=== PATIENT | male | born 1940 | race Caucasian/White ===

== ENCOUNTER 2018-01-03 07:07 | Outpatient (CLI) | payer MEDICARE, BC ==
[~2018-01-03] VITALS: Ht 175.3 cm; Wt 78.2 kg
--- NOTE | ~2018-01-03 | HEMODYNAMI ---
PATIENT:BRENDA CHAVARRIA MEDICAL RECORD: [id number] : 42 LOCATION:[facility] ADMISSION DATE: 01/03/18 Generatedon:01/03/20188:30 Patient name: BRENDA CHAVARRIA Patient #: [id number] SSN: : 1940 Date of study: 01/03/2018 Page: Of Hemodynamic Procedure Report Patient Data Patient Demographics Procedure consent was obtained First Name: BRENDA Gender: Male Last Name: DEON : 1940 [facility] Initial: R Age: 77 year(s) Patient #: [id number] Race: Unknown Additional ID: [id number] Contact details Address: [address] [place] [address] [facility] State: [place] City: [facility] Zip code: [address] Past Medical History Allergies Allergen Reaction Date Comments Reported Penicillins 01/03/2018 Admission Admission Data Admission Date: 01/03/2018 Admission Time: 7:07 Procedure Procedure Types Cath Procedure Diagnostic Procedure LHC LHC w/Coronaries Sedation Charges Moderate Sedation up to 15 minutes Procedure Description Procedure Date Procedure Date: 01/03/2018 Procedure Start Time: 8:15 Procedure End Time: 8:29 Procedure Staff Name Function Bishop Cohen MD Performing Physician Genet Thompson RT Monitor Epifanio Lang RN Nurse Todd Plummer RT Scrub Procedure Data Cath Procedure Fluoroscopy Diagnostic fluoroscopy Total fluoroscopy Time: 2.6 time: 2.6 min min Diagnostic fluoroscopy Total fluoroscopy dose: 658 dose: 658 mGy mGy Contrast Material Contrast Material Type Amount (ml) Isovue 300 81 Entry Location Entry Primary Successful Side Size Upsize Upsize Entry Closure [place] ccessful Closure Location (Fr) 1 (Fr) 2 (Fr) Remarks Device Remarks Radial Right 6 Fr Mechanical artery Short Compression Estimated blood loss: 5 ml Diagnostic catheters Device Type Used For End Catheter Placement DIAGNOSTIC Peter 110cm LV Angiography 5Fr catheter ([id number]) DIAGNOSTIC Peter 110cm Left Coronary 5Fr catheter ([id number]) Angiography Procedure Complications No complications Procedure Medications Medication Administration Route Dosage 0.9% NaCl I.V. 100 ml/hr Oxygen etCO2 Nasal cannula 2 l/min Heparin Flush Bag added to field 2 bags (1000units/500ml NS) Lidocaine 2% added to field 20 Radial Cocktail added to field 1 syringe (Verapomil 2mg/Nitro 400mcg/Heparin 1500units) Versed I.V. 1 mg Fentanyl I.V. 50 mcg Radial Cocktail I.A. 1 syringe (Verapomil 2mg/Nitro 400mcg/Heparin 1500units) Versed I.V. 1 mg Fentanyl I.V. 50 mcg Hemodynamics Rest Heart Rate: 63 (bpm) Pressure Samples Time Site Value (mmHg) Purpose Heart Use Rate(bpm) 8:17 LV 71/6,14 EDP 83 8:18 AO 122/68(87) Pullback 83 8:18 LV 115/-4,4 Pullback 83 Gradients Valve Time Site 1 Site 2 Mean SEP/DFP Peak To Heart Use (mmHg) (sec/min) Peak Rate (mmHg) (bpm) Aortic 8:18 LV AO 0 2 0 83 115/-4,4 122/68(87) Calculations Valve P-P Mean Valve Index Valve Source Name Gradient Area Flow (cm2) Aortic 0 0 0 0 Snapshots Pre Cath Intra NCS Post Cath Vital Signs Time Heart Resp SPO2 etCO2 NIBP (mmHg) Rhythm Pain Sedation Rate (ipm) (%) (mmHg) Status Level (bpm) 7:56:11 63 14 94 0 181/93(154) NSR 0 (11) 10(A) , No pain 8:00:58 66 19 95 31.4 169/98(138) NSR 0 (11) 10(A) , No pain 8:05:43 70 17 92 33.7 169/95(125) NSR 0 (11) 10(A) , No pain 8:10:30 61 17 94 8.2 166/78(137) NSR 0 (11) 9(A) , No pain 8:15:12 68 16 93 8.2 157/95(119) NSR 0 (11) 9(A) , No pain 8:19:53 76 17 93 24.7 131/79(96) NSR 0 (11) 9(A) , No pain 8:24:33 73 17 92 5.9 139/74(104) NSR 0 (11) 10(A) , No pain 8:29:16 70 7 94 42.7 149/78(135) NSR 0 (11) 10(A) , No pain Medications Time Medication Route Dose Verified Delivered Reason Notes Effectiveness by by 8:00:10 0.9% NaCl I.V. 100 Ji Ji Per ml/hr Ami Mueller physician RN RN 8:00:21 Oxygen etCO2 2 l/min Ji Ji Per Nasal Ami Mueller physician cannula RN RN 8:00:33 Heparin Flush added 2 bags Ji Ji used for Bag to Lorigan Ami procedure (1000units/500ml field RN RN NS) 8:00:44 Lidocaine 2% added 20ml Ji Ji for local to vial Lorigan Lorigan anesthetic field RN RN 8:00:55 Radial Cocktail added 1 Ji Ji used for (Verapomil to syringe Ami Mueller procedure 2mg/Nitro field RN RN 400mcg/Heparin 1500units) 8:03:28 Versed I.V. 1 mg Ji Ji for sedation Ami Mueller RN RN 8:03:38 Fentanyl I.V. 50 mcg Ji Ji for sedation Ami Mueller RN RN 8:16:57 Radial Cocktail I.A. 1 Ji Bishop for (Verapomil syringe Ami Cohen MD vasodilation 2mg/Nitro RN 400mcg/Heparin 1500units) 8:17:44 Versed I.V. 1 mg Ji Ji for sedation Ami Mueller RN RN 8:17:52 Fentanyl I.V. 50 mcg Ji Ji for sedation Ami Mueller RN erp analyst Log Time Note 7:36:55 Time tracking: Regular hours (M-F 7:00 - 5:00) 7:36:58 Plan of Care:Hemodynamics will remain stable., Cardiac rhythm will remain stable., Comfort level will be maintained., Respiratory function will remain adequate., Patient/ family verbilizes understanding of procedure., Procedure tolerated without complication., Recovers from procedure without complications.. 7:40:11 Genet Thompson RT(R) sent for patient. Start room use. 7:44:57 Patient received from Pre/Post Procedure Room to CCL 1 Alert and oriented. Tansferred to table in Supine position. 7:44:57 Warm blankets applied, and maile hugger turned on for patient comfort. 7:44:58 Correct patient and procedure confirmed by team. 7:44:59 Signed procedure consent form obtained from patient. 7:45:00 ECG and BP/O2 sat monitors applied to patient. 7:45:01 Full Disclosure recording started 7:54:37 Vital chart was started 7:54:41 Rhythm: sinus rhythm 7:54:49 H&P Date Dictated: 01/03/2018 New H&P dictated by physician.. 7:54:51 Pre-procedure instructions explained to patient. 7:54:51 Pre-op teaching completed and patient verbalized understanding. 7:54:52 Family in waiting room. 7:54:54 Patient NPO since Midnight. 7:54:59 Patient allergic to Penicillins 7:55:01 Is the patient allergic to Iodine/contrast media? No. 7:55:04 Is patient on blood thinner?No 7:55:05 Patient diabetic? No. 7:56:30 Previous problem with sedation/anesthesia? No ? 7:56:32 Snore? No 7:56:34 Sleep apnea? No 7:56:36 Deviated septum? No 7:56:39 Opens mouth fully? Yes 7:56:40 Sticks out tongue? Yes 7:56:45 Airway obstruction? Yes COPD 7:56:48 Dentures? Yes Implants 7:56:52 Pre procedure: right dorsailis pedis pulse 2+ Normal; easily identifiable; not easily obliterated 7:56:53 Modified Boubacar's test Ulnar < 7 seconds 7:56:55 Patient pain scale 0/10 ?. 7:57:00 IV patent on arrival in left forearm with 0.9% NaCl at KVO. 7:57:02 Lab results completed and on chart. 7:57:06 Right Radial & Right Groin area was prepped with chlora-prep and draped in sterile fashion 7:57:06 Alarms reviewed by R. N. 7:57:07 Sharps counted by scrub and verified by R.N. 7:57:10 Use device set Radial Dx or PCI 7:57:11 ACIST Syringe (05049) opened to sterile field. 7:57:12 Medline Cath Pack ([id number]) opened to sterile field. 7:57:13 Bag Decanter (2002) opened to sterile field. 7:57:15 DIAGNOSTIC WIRE .035 260cm J wire (580673) opened to sterile field. 7:57:16 ACIST Hand Control (05565) opened to sterile field. 7:57:17 ACIST Manifold (39471) opened to sterile field. 7:57:18 MBrace Wrist Support ([id number]) opened to sterile field. 7:57:20 SHEATH 6Fr Prelude Radial ([id number]) opened to sterile field. 7:58:03 Baseline sample Acquired. 8:00:10 0.9% NaCl 100 ml/hr I.V. was administered by Ji Mueller RN; Per physician; 8:00:21 Oxygen 2 l/min etCO2 Nasal cannula was administered by Ji Mueller RN; Per physician; 8:00:33 Heparin Flush Bag (1000units/500ml NS) 2 bags added to field was administered by Ji Muleler RN; used for procedure; 8:00:44 Lidocaine 2% 20ml vial added to field was administered by Ji Mueller RN; for local anesthetic; 8:00:55 Radial Cocktail (Verapomil 2mg/Nitro 400mcg/Heparin 1500units) 1 syringe added to field was administered by Ji Mueller RN; used for procedure; 8:02:37 Final Timeout: patient, procedure, and site verified with staff and physician. All members of the team are in agreement. 8:02:39 Right Radial site verified by team. 8:02:42 Physical assessment completed. ASA score P 2 - A patient with mild systemic disease as per Bishop Cohen MD. 8:02:46 Sedation plan: IV Moderate Sedation Medication:Versed, Fentanyl 8:03:28 Versed 1 mg I.V. was administered by Ji Mueller RN; for sedation; 8:03:38 Fentanyl 50 mcg I.V. was administered by Ji Mueller RN; for sedation; 8:07:29 Zero performed for pressure channel P1 8:07:36 Zero performed for pressure channel P1 8:07:41 Zero performed for pressure channel P1 8:07:45 Zero performed for pressure channel P1 8:15:14 Procedure started. 8:15:21 Local anesthetic to right radial artery with Lidocaine 2% by Bishop Cohen MD.INITIAL ACCESS ONLY 8:16:01 A 6 Fr Short sheath was inserted into the Right Radial artery 8:16:46 A DIAGNOSTIC Peter 110cm 5Fr catheter ([id number]) was advanced over the wire and used for LV Angiography. 8:16:57 Radial Cocktail (Verapomil 2mg/Nitro 400mcg/Heparin 1500units) 1 syringe I.A. was administered by Bishop Cohen MD; for vasodilation; 8:17:44 Versed 1 mg I.V. was administered by Ji Mueller RN; for sedation; 8:17:44 LV gram done using MILLER 8:17:45 LV hemodynamics recorded. 8:17:48 Injector settings: Ml/sec: 5, Volume: 15, 8:17:52 Fentanyl 50 mcg I.V. was administered by Ji Mueller RN; for sedation; 8:17:55 EF : 50 % 8:18:36 A DIAGNOSTIC Peter 110cm 5Fr catheter ([id number]) was advanced over the wire and used for Left Coronary Angiography. 8:24:31 Catheter removed. 8:24:37 TR BAND Standard ([id number]) opened to sterile field. 8:24:58 Sheath removed intact; hemostasis achieved with Mechanical Compression to the Right Radial artery. 8:24:59 Procedure ended.(Physican Out) 8:25:10 Fluoroscopy time 02.60 minutes. 8:25:20 Flurop Dose total: 658 8:25:20 Fluoroscopy dose: 658 mGy 8:25:26 Contrast amount:Isovue 300 81ml. 8:25:27 Sharps counted by scrub and verified by R.N. 8:25:30 TR band inflated with 12cc of air. 8:25:32 Insertion/operative site no bleeding no hematoma. 8:25:37 Post right radial artery:stable, clean and dry 8:25:38 Post Procedure Pulses reassessed and unchanged 8:25:41 Post-procedure physical assessment completed. ASA score P 2 - A patient with mild systemic disease as per Bishop Cohen MD. 8:25:53 Post procedure rhythm: unchanged. 8:25:55 Estimated blood loss: 5 ml 8:25:56 Post procedure instruction explained to patient.Patient verbalizes understanding. 8:25:57 Patient needs reinforcement of post procedure teaching. 8:26:16 Procedure type changed to Cath procedure, Diagnostic procedure, LHC, LHC w/Coronaries, Sedation Charges, Moderate Sedation up to 15 minutes 8:26:30 Procedure Complication : No complications 8:26:33 See physician's report for complete and final results. 8:26:49 Procedure and supply charges have been captured, reviewed, submitted and are correct. 8:29:09 Vital chart was stopped 8:29:11 Report given to Pre/Post Procedure Room. 8:29:33 Patient transfered to Pre/Post Procedure Room with Stretcher. 8:29:35 Procedure ended. 8:29:35 Full Disclosure recording stopped 8:29:39 End room use (Document Last) Device Usage Item Name Manufacture Quantity Catalog Number Hospital Part Current M inimal Lot# / Charge Number Stock Stock Serial# Code ACIST Syringe Acist 1 22422 [id number] 587136 [id number] 2 0 (55775) Medical [employer] Inc Medline Cath Cardinal 1 [id number] 201006 36848 002815 5 Syntensia ([id number]) Bag Decanter Microtek 1 2001S 283669 55351 112625 5 () Medical Inc. DIAGNOSTIC WIRE [place] 1 097332 935992 267062 754862 3 0 .035 260cm J wire (283948) ACIST Hand Acist 1 50706 437584 408348 188174 5 Control (71248) [employer] Inc ACIST Manifold Acist 1 39586 975290 951371 809163 5 (36246) Medical Systems Inc MBrace Wrist Advanced 1 140-0250-00 502413 75670 211220 5 Support Vascular ([id number]) Dynamics SHEATH 6Fr Merit 1 [id number] 220730 364669 182540 5 Prelude Radial Medical ([id number]) DIAGNOSTIC Terumo 1 22-4135 702859 809324 878044 5 Peter 110cm 5Fr catheter (081308) TR BAND Terumo 1 [id number] 872531 466143 935714 4 0 Standard ([id number]) Signature Audit [place] Stage Time Signature Unsigned Intra-Procedure 01/03/2018 Genet 8:30:12 AM Counts RT(R) Signatures Monitor : Genet Signature : Counts RT Date : Time : [place] [address] [place] [address]
[2018-01-03 07:02] VITALS: BP 188/98; Ht 175.3 cm; Wt 78.2 kg
[~2018-01-03 07:07] MED LIST: AMBIEN10 MG PO; FLOMAX0.4 MG PO; LISINOPRIL5 MG PO; NEURONTIN600 MG PO; REQUIP0.25 MG PO; ZYRTEC10 MG PO
[2018-01-03 07:18] LABS: BASOPHILS 0.4 % (0-2); EOSINOPHILS 3.9 % (0-7); HEMATOCRIT 49.5 % (42.0-54.0); HEMOGLOBIN 17.1 g/dL (13.5-17.5); LYMPHOCYTES 34.9 % (15-50); MCH 33.3 pg (26.0-34.0); MCHC 34.5 g/dL (31.0-37.0); MCV 96.3 fL (80.0-100.0); MEAN PLATELET VOLUME 9.6 fL (7.4-10.4); MONOCYTES 10.3 % (2-11); NEUTROPHILS 50.5 % (40-80); PLATELET COUNT 158 10x3/uL (130-400); RBC 5.14 10x6/uL (4.20-6.10); RDW 12.3 % (11.5-14.5); WBC 5.4 10x3/uL (4.8-10.8)
[2018-01-03 07:36] LABS: CALC OSMOLALITY 284 mosm/kg (275-300); CALCIUM 8.5 mg/dL (8.5-10.1); CARBON DIOXIDE 28.9 mmol/L (21.0-32.0); CHLORIDE - SERUM 105 mmol/L (98-107); GLUCOSE 100 mg/dL (74-106); POTASSIUM - SERUM 3.8 mmol/L (3.5-5.1); SODIUM 142 mmol/L (136-145); UREA NITROGEN 18 mg/dL (7-18); eGFR NON AFRICAN AMERICAN 77 mL/min (90-120)
== END 2018-01-03 11:00 | disposition home or self-care (01) ==
LOC: D.CATH 07:07
PROVIDERS: Internal Medicine Cardiovascular Disease
DX: I25.119 Atherosclerotic heart disease of native coronary artery with unspecified angina pectoris (principal); I10 Essential (primary) hypertension; J44.9 Chronic obstructive pulmonary disease, unspecified; K21.9 Gastro-esophageal reflux disease without esophagitis; F32.9 Major depressive disorder, single episode, unspecified; G62.9 Polyneuropathy, unspecified; Z88.0 Allergy status to penicillin; Z79.899 Other long term (current) drug therapy; Z01.812 Encounter for preprocedural laboratory examination

== ENCOUNTER → 2018-01-16 11:09 | Outpatient (CLI) | payer MEDICARE, BC ==
[2018-01-03 07:02] VITALS: BMI 25.4
[~2018-01-16 11:09] MED LIST changes: +ACETAMINOPHEN325 MG PO; +ALBUTEROL2.5 MG/3 M UPD; +BAYER CHEWABLE81 MG PO; +COLACE100 MG PO; +CORDARONE200 MG PO; +DULCOLAX10 MG/SUPP RC; +FLORAJEN3 CAPS460 MG PO; +HEMOCYTE PLUS C1 CAP PO; +IPRAT-ALBUT 0.5-3 ML UPD; +K-DUR20 MEQ PO; +LASIX40 MG PO; +LOVENOX40 MG/0.4 SC; +NORCO-5 PO; +SENOKOT-S TABLE1 TAB PO; +VANCOMYCIN 1 GM/1 G1 IV
[2018-01-17 14:25] LABS: HEPATITIS C ANTIBODY <0.1 (0.0-0.9)
== END | disposition home or self-care (01) ==
LOC: D.LAB 11:09 → D.US 11:30
PROVIDERS: Internal Medicine Cardiovascular Disease
DX: I25.10 Atherosclerotic heart disease of native coronary artery without angina pectoris (principal); Z01.812 Encounter for preprocedural laboratory examination; R09.89 Other specified symptoms and signs involving the circulatory and respiratory systems

== ENCOUNTER → 2018-01-18 08:35 | Outpatient (CLI) | payer MEDICARE, BC ==
[2018-01-03 07:02] VITALS: BMI 25.4
== END | disposition home or self-care (01) ==
LOC: D.CT 08:35
DX: I65.23 Occlusion and stenosis of bilateral carotid arteries (principal)

== ENCOUNTER 2018-01-23 05:00 | Inpatient (IN) | payer MEDICARE, BC ==
[2018-01-21 11:17] LABS: BASOPHILS 0.6 % (0-2); EOSINOPHILS 3.5 % (0-7); HEMATOCRIT 48.5 % (42.0-54.0); HEMOGLOBIN 17.1 g/dL (13.5-17.5); IMMATURE GRANULOCYTES 0.2 % (0-5); LYMPHOCYTES 31.1 % (15-50); MCH 33.5 pg (26.0-34.0); MCHC 35.3 g/dL (31.0-37.0); MCV 95.1 fL (80.0-100.0); MEAN PLATELET VOLUME 9.3 fL (7.4-10.4); MONOCYTES 6.4 % (2-11); NEUTROPHILS 58.2 % (40-80); PLATELET COUNT 151 10x3/uL (130-400); RDW 12.3 % (11.5-14.5); WBC 5.2 10x3/uL (4.8-10.8)
[2018-01-21 11:24] LABS: APPEARANCE CLEAR (CLEAR); BILIRUBIN NEGATIVE (NEGATIVE); COLOR YELLOW (YELLOW); GLUCOSE NEGATIVE (NEGATIVE); KETONE NEGATIVE (NEGATIVE); NITRITE NEGATIVE (NEGATIVE); PROTEIN NEGATIVE (NEGATIVE); UROBILINOGEN NORMAL (NORMAL)
[2018-01-21 11:28] LABS: APTT 27.7 SECONDS (22.8-39.4); INR 1.03 (0.85-1.17); PROTIME 13.1 SECONDS (11.6-15.0)
[2018-01-21 12:19] LABS: ALBUMIN 3.6 g/dL (3.4-5.0); ANION GAP 9.2 mmol/L (8-16); BILIRUBIN - TOTAL 0.66 mg/dL (0.2-1.3); CALCIUM 8.5 mg/dL (8.5-10.1); CARBON DIOXIDE 30.6 mmol/L (21.0-32.0); CREATININE - SERUM 1.1 mg/dL (0.6-1.3); PHOSPHOROUS 2.8 mg/dL (2.5-4.9); POTASSIUM - SERUM 3.8 mmol/L (3.5-5.1); PROTEIN - SERUM 6.8 g/dL (6.4-8.2); T4 THYROXINE 6.4 ug/dL (4.7-13.3); THYROID STIMULATING HORMONE 1.42 uIU/mL (0.36-3.74); URIC ACID 6.6 mg/dL (2.6-7.2)
[~2018-01-23] VITALS: Ht 175.3 cm; Wt 83.6 kg
[2018-01-23] VITALS (34 sets, daily range): BP systolic 94–186; BP diastolic 45–93; BMI 25.4; BMI 26.9
--- NOTE | ~2018-01-23 | OP ---
PATIENT NAME: BRENDA CHAVARRIA MEDICAL RECORD: [id number] :42 LOCATION:[facility] ADMISSION DATE:01/23/18 SURGEON: TOPHER CALDERÓN MD DATE OF OPERATION: 01/23/2018 SURGEON: Topher Calderón MD ANESTHESIA: General endotracheal, Dr. Garcia. OPERATION PERFORMED: Coronary artery bypass. 1. Left internal thoracic artery to left anterior descending. 2. Reverse saphenous vein graft to the first diagonal coronary artery. 3 and 4. Reverse saphenous vein graft to the obtuse marginal 1, sequential obtuse marginal 2. PREOPERATIVE DIAGNOSES: Atherosclerosis, coronary arteries with angina pectoris. POSTOPERATIVE DIAGNOSES: Atherosclerosis, coronary arteries with angina pectoris. 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 FINDINGS OF THE OPERATION: The target vessels were of good caliber and quality. The vein graft was adequate for grafting and the left internal thoracic was a large conduit. ESTIMATED BLOOD LOSS: Cell Saver was used. DESCRIPTION OF PROCEDURE: After informed consent and adequate preoperative medication evaluation, the patient was brought to the operating room and placed on the table in the supine position. After induction of general endotracheal anesthesia and application of appropriate monitoring devices, the chest, neck, abdomen, and both legs were prepped and draped in sterile field utilizing Betadine scrub, alcohol, and Betadine solution. A Betadine-impregnated drape was also used. Saphenous vein was harvested from the right lower leg and thigh and prepared for reverse saphenous vein grafting. The leg was closed over drains utilizing 3-0 Vicryl and skin romi. A median sternotomy incision was used and dissection carried down the fascia. Hemostasis was maintained with electrocautery. Sternum was divided. Innominate vein was identified and protected. Left internal thoracic was taken down and prepared for grafting. The patient was given a calculated dose of heparin, cannulated in the standard fashion utilizing one aortic, one 2-stage cannula in the atrium and inferior vena cava. The patient was placed on cardiopulmonary bypass, cooled to 32 degrees centigrade. A cross clamp was placed just proximal to the aortic cannula. The patient was given cardioplegic solution through the aortic root. The patient was given warm induction and cold maintenance. The patient was given cold intermittent cardioplegic solution throughout the procedure, either through the root, the grafts or a combination of both. The first vessel to be grafted was the distal circumflex or posterior descending. It was grafted end-to-side utilizing a running 7-0 Prolene suture. The graft was then measured to the first obtuse marginal and a [id number]-al-[id number] anastomosis fashioned utilizing running 7-0 Prolene suture. The grafts were measured back to the aorta and a proximal anastomosis fashioned utilizing running 6-0 Prolene suture. Next, the OPERATIVE REPORT [id number] BRENDA CHAVARRIA R first diagonal was grafted end-to-side utilizing running 7-0 Prolene suture. The graft was measured back to the aorta and was sutured to the other vein graft end-to-side utilizing running 6-0 Prolene suture. Next, left internal thoracic was brought out through the hole in pericardium and sutured to left anterior descending end-to-side utilizing a running 8-0 Prolene suture. The pedicle was attached to epicardium with 6-0 Prolene suture. All maneuvers to remove trapped air in the heart performed. The patient was given warm cardioplegic reperfusion and controlled reperfusion. The patient was rewarmed to 37 degrees centigrade. Two atrial and 2 ventricular pacing wires were placed on the heart and brought out through the epigastric area. The patient was weaned from cardiopulmonary bypass. After being stable off bypass, he was given calculated dose of protamine to reverse the heparin. Chest and mediastinum were irrigated with copious amounts of antibiotic solution and normal saline. There was no active bleeding. Instrument count and sponge count were correct times 2. A #40 right angle and #36 chest tubes were brought in through the epigastric and placed in mediastinum. A separate left pleural tube was connected to underwater seal and suction. A Malcom drain was left in the diaphragmatic area. The chest was again irrigated. Instrument count and sponge count were correct times 2. Chest closed in layers utilizing #7 wire on the sternum, #2 Vicryl on linea alba and pectoralis fascia. Subcutaneous tissue was approximated with 3-0 Vicryl and skin approximated with 3-0 subcuticular Vicryl. Sterile dressings were applied. The patient tolerated the procedure well and was transferred to cardiovascular recovery in stable condition. TRANSINT:[id number] Voice Confirmation ID: [id number] DOCUMENT ID: [id number] TOPHER CALDERÓN MD at 1619 CC: [id number] DICTATION DATE: 01/23/18 1619 SIDE PANEL HANGER: 01/23/18 1729 ADM [place] [id number] [place] [id number]
--- NOTE | ~2018-01-23 | HP ---
PATIENT: BRENDA CHAVARRIA MEDICAL RECORD: [id number] ACCOUNT: [id number] LOCATION:[place] [address] : [birth year] ADMISSION DATE: 01/23/18 HISTORY AND PHYSICAL EXAMINATION BRENDA Gusman (77yo, M) ID# [id number]. 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 Chief Complaint Coronary artery disease Patient's Care Team Management Trainee Marketing: MARIELENA ALEXANDER MD: [address] [place] [phone], , [facility] (ERX): [phone] [facility] [phone], , Vitals BP:168/98 sitting R arm 01/16/2018 09:53 am 170/96 sitting L arm 01/16/2018 09:54 amHR:70/reg 01/16/2018 09:55 amHt:5 ft 9 in 01/16/2018 09:51 amWt:171.6 lbs 01/16/2018 09:51 amBMI:25.3 01/16/2018 09:51 amAllergies Reviewed Allergies PENICILLINSMedications Reviewed Medications azithromycin 250 mg xeblly07/05/18 filledPRESCRIPTION SOLUTIONScitalopram 20 mg vdoumo72/02/17 filledPRESCRIPTION SOLUTIONSesomeprazole magnesium 40 mg capsule,delayed nlbween15/19/18 filledPRESCRIPTION SOLUTIONSgabapentin 600 mg glakxg65/27/17 filledPRESCRIPTION SOLUTIONSNeurontin 600 mg tid01/14/18 enteredErika WatkinspredniSONE 10 mg waxiql85/05/18 filledPRESCRIPTION SOLUTIONSSpiriva with HandiHaler 18 mcg and inhalation wxecvsty04/22/18 filledPRESCRIPTION SOLUTIONStamsulosin 0.4 mg uhkqaao98/02/17 filledPRESCRIPTION SOLUTIONSProblems Reviewed Problems Angina pectoris Coronary arteriosclerosis Tricuspid valve disorder Palpitations Heart murmur Family History Reviewed Family History Father- Heart disease - Myocardial infarction (onset age: 62)Social History Reviewed Social History Cardiology and General Family history of heart disease?: Y Smoking Status: Former smoker High Cholesterol: N High blood pressure: N HISTORY AND PHYSICAL [id number] BRENDA CHAVARRIA Diabetes: N Surgical History Reviewed Surgical History Past Medical History Reviewed Past Medical History Angina: Y Coronary Artery Disease: Y Heart Murmur: Y Irregular heart beat: Y Shortness of Breath: Y Valve disease: Y - tricuspid valve Documents for Discussion N/A Screening None recorded. HPI Angina/Chest Pain Reported by patient. Location: chest; middle scapular; does not radiate Quality: pressure Severity: mild Duration: has noted for years; "one year" Onset/Timing: multiple times per day; gradual onset Context: exertional; occurs with physical stress Aggravating Factors: worse with activity Associated Symptoms: no dyspnea; chest discomfort; fatigue coronary artery disease with angina pectoris ROS Patient reports exercise intolerance but reports no fever, no night sweats, no significant weight gain, and no significant weight loss. He reports chest pain on exertion and shortness of breath when walking but reports no arm pain on exertion, no shortness of breath when lying down, no palpitations, and no known heart murmur. He reports no dry eyes, no irritation, and no vision change. H e reports no difficulty hearing and no ear pain. He reports no frequent nosebleeds and no nose/sinus problems. He reports no sore throat, no bleeding gums, no snoring, no dry mouth, no mouth ulcers, no oral abnormalities, and no teeth problems. He reports no jugular vein distension and no swollen glands. He reports no cough, no wheezing, no shortness of breath, and no coughing up blood. He reports no abdominal pain, no vomiting, normal appetite, no diarrhea, not vomiting blood, no nausea, and no constipati o n. He reports no incontinence, no difficulty urinating, no hematuria, and no increased frequency. He reports no muscle aches, no muscle weakness, no arthralgias/joint pain, no back pain, and no swelling in the extremities. He reports no abnormal mole, no j aundice, and no rashes. He reports no loss of consciousness, no weakness, no numbness, no seizures, no dizziness, and no headaches. He reports no depression, no sleep disturbances, feeling safe in relationship, and no alcohol abuse. He reports no fatigue. He reports no swollen glands and no bruising. He reports no runny nose, no sinus pressure, no itching, no hives, and no frequent sneezing. ROS as noted in the HPI Physical Exam Patient is a 77-year-old male. Constitutional: General Appearance well nourished and developed and healthy-appearing. Level of Distress NAD. Ambulation ambulating normally. HISTORY AND PHYSICAL [id number] BRENDA CHAVARRIA Cardiovascular: Apical Impulse not displaced or no thrill. Heart Auscultation normal s1 and s2, no rubs or gallops, and RRR and murmur (pitched systolic). Arterial Pulses no abdominal aorta bruits, femoral bruits, or popliteal bruits and 2+ bilateral, carotid 2+ bilateral, femoral 2+ bilateral, popliteal 2+ bilateral, and dorsalis pedis 2+ bilateral. Edema no edema or varicosities. Lungs: Repiratory Effort no dyspnea. Percussion no dullness or flatness and hyperresonance . Auscultation no wheezing, rhonchi, or rales / crackles and breathing sounds normal, good air movement, and CTA except as noted. Abdomen: Bowl Sounds normal. Insp ection and Palpation no tenderness, guarding, masses, or rebound tenderness and soft and non-distended. Liver non-tender and no hepatomegaly. Spleen non-tender and no splenomegaly. Hernia none palpable. Musculoskeletal System: Gait And Stance normal gait and stance. Digits and Nails normal nails and no cyanosis. Joints, Bones, and Muscles amputation of left distal thumb. Neurologic: Cranial Nerves grossly intact. Reflexes DTRs 2+ bilaterally throughout. Sensation grossly intact. Lymph Nodes: Lymph Nodes no cervical LAD, supraclavicular LAD, axillary LAD, or inguinal LAD. Eyes: Lids and Conjunctivae no discharge or pallor and non-injected. Pupils PERRLA. Cornea grossly intact. EOM EOMI. Lens clear. Sclerae non-icteric. Neck: Neck no masses or enlarged lymph nodes and supple, trachea midline, and carotid bruits (bilateral). Thyroid no enlargement or nodules and non-tender. Skin: Inspection and Palpation no rash, lesions, ulcers, jaundice, or abnormal nevi. Assessment / Plan coronary atherosclerosis with angina pectoris 1. Coronary arteriosclerosis I25.10: Atherosclerotic heart disease of [place] coronary artery without angina pectoris 2. Angina pectoris I20.9: Angina pectoris, unspecified ANGINA: CARE INSTRUCTIONS Discussion Notes the patient appears to be a good candidate for coronary artery bypass. I have discussed his disease process with him and his in detail as well as the alternative methods of treatment. We discussed coronary artery bypass including the expected benefits and risk, which inclu de bleeding, infection, stroke, , and the imponderables. He understands all the above and wishes to proceed with planned surgery We will obtain carotid Doppler studies and hepatitis screen today Will call for scheduled today HISTORY AND PHYSICAL [id number] BRENDA CHAVARRIA EDWARD MD at 1619 CC: [id number] DICTATION DATE: 01/16/18 0900 BROOM HANDLE DIPPER: JEFF 01/18/18 1330 ADM IN [facility] [address] [place] [address]
--- NOTE | ~2018-01-23 | TEE ---
PATIENT:BRENDA CHAVARRIA MEDICAL RECORD: [id number] LOCATION:[place] [address] AGE OF PATIENT: 77 ADMISSION DATE: 01/23/18 SEX: M REFERRING PHYSICIAN: INTERPRETING PHYSICIAN: KAREN SALAZAR MD TRANSESOPHAGEAL ECHOCARDIOGRAM Date: 01/23/18 JOHNNIE CHARGE Y INDICATIONS: CABG PREMEDICATIONS: PATIENT'S RESPONSE PROCEDURE DOPPLER MEASUREMENTS: LVIT LA PA RA LVOT RVOT Asc. Ao AV Gradient Peak AV Mean AV Area MV Gradient Peak MV Mean MV Area INTERPRETATION: LVd: 3.6 cm LVs: 3.2 cm Doppler: 2-D: COLOR FLOW DOPPLER NORMAL SALINE STUDY: MISCELLANOUS: DIAGNOSIS: PLAN: Transferrer:Jesús Cohen Customs Agent: COMMENTS: DATE OF SERVICE: PROCEDURE: Transesophageal echo evaluation of valvular structures during bypass surgery. FINDINGS: 1. Left ventricular chamber size is within normal limits. Left ventricular systolic function is mildly reduced, overall ejection fraction estimated at 40%. 2. Left atrium, right atrium, and right ventricle chamber sizes are within TRANSESOPHAGEAL ECHOCARDIOGRAM REPORT [id number] BRENDA CHAVARRIA normal limits. 3. Valvular structures have normal structure and motion. 4. Doppler interrogation reveals trace mitral regurgitation, no other valvular insufficiency or stenosis. 5. No evidence of pericardial effusion or left ventricular thrombus. TRANSINT:[id number] Voice Confirmation ID: [id number] DOCUMENT ID: [id number] at 1325 CC: [id number] DICTATION DATE: 01/23/18 1540 HEATER OPERATOR HELPER: 01/23/18 1553 ADM IN [place] [id number] [place] [address]
[~2018-01-23 05:00] MED LIST changes: -ACETAMINOPHEN325 MG PO; -ALBUTEROL2.5 MG/3 M UPD; -BAYER CHEWABLE81 MG PO; -COLACE100 MG PO; -CORDARONE200 MG PO; -DULCOLAX10 MG/SUPP RC; -FLORAJEN3 CAPS460 MG PO; -HEMOCYTE PLUS C1 CAP PO; -IPRAT-ALBUT 0.5-3 ML UPD; -K-DUR20 MEQ PO; -LASIX40 MG PO; -LOVENOX40 MG/0.4 SC; -NORCO-5 PO; -SENOKOT-S TABLE1 TAB PO; -VANCOMYCIN 1 GM/1 G1 IV
[2018-01-23] MEDS ORDERED: BAYER CHEWABLE81 MG PO (05:30)
[2018-01-23 07:33] LABS: PLT FUNCT.(P2Y12) PLAVIX 240 PRU (194-418)
[2018-01-23 15:16] LABS: APTT 37.8 SECONDS (22.8-39.4); INR 1.79 (0.85-1.17); PROTIME 20.2 SECONDS (11.6-15.0)
[2018-01-23 15:18] LABS: CARBON DIOXIDE 23.8 mmol/L (21.0-32.0); CHLORIDE - SERUM 113 mmol/L (98-107); CREATININE - SERUM 0.9 mg/dL (0.6-1.3); SODIUM 147 mmol/L (136-145); UREA NITROGEN 20 mg/dL (7-18); eGFR NON AFRICAN AMERICAN 87 mL/min (90-120)
[2018-01-23 15:19] LABS: CALC OSMOLALITY 297 mosm/kg (275-300); GLUCOSE 161 mg/dL (74-106)
[2018-01-23 15:21] LABS: CALCIUM 6.1 mg/dL (8.5-10.1)
[2018-01-23 15:26] LABS: HEMATOCRIT 28.5 % (42.0-54.0); HEMOGLOBIN 9.9 g/dL (13.5-17.5); MCHC 34.7 g/dL (31.0-37.0); MEAN PLATELET VOLUME 9.1 fL (7.4-10.4); RDW 12.5 % (11.5-14.5); WBC 10.4 10x3/uL (4.8-10.8)
[2018-01-24] VITALS (61 sets, daily range): BP systolic 97–140; BP diastolic 41–57; BMI 27.6
[2018-01-24 06:10] LABS: HEMATOCRIT 27.3 % (42.0-54.0); HEMOGLOBIN 9.3 g/dL (13.5-17.5); MCH 31.5 pg (26.0-34.0); MCHC 34.1 g/dL (31.0-37.0); MCV 92.5 fL (80.0-100.0); MEAN PLATELET VOLUME 9.8 fL (7.4-10.4); RBC 2.95 10x6/uL (4.20-6.10); RDW 15.6 % (11.5-14.5); WBC 8.2 10x3/uL (4.8-10.8)
[2018-01-24 06:22] LABS: ALBUMIN 3.3 g/dL (3.4-5.0); ANION GAP 13.1 mmol/L (8-16); BILIRUBIN - TOTAL 1.12 mg/dL (0.2-1.3); CALCIUM 7.6 mg/dL (8.5-10.1); POTASSIUM - SERUM 4.4 mmol/L (3.5-5.1); PROTEIN - SERUM 4.7 g/dL (6.4-8.2)
[2018-01-24 06:27] LABS: CARBON DIOXIDE 30.3 mmol/L (21.0-32.0); CREATININE - SERUM 1.3 mg/dL (0.6-1.3)
[2018-01-25] VITALS (24 sets, daily range): BP systolic 94–144; BP diastolic 42–79
[2018-01-25 06:44] LABS: HEMATOCRIT 28.2 % (42.0-54.0); HEMOGLOBIN 9.2 g/dL (13.5-17.5); MCH 31.3 pg (26.0-34.0); MCHC 32.6 g/dL (31.0-37.0); MEAN PLATELET VOLUME 9.5 fL (7.4-10.4); PLATELET COUNT 92 10x3/uL (130-400); RBC 2.94 10x6/uL (4.20-6.10); RDW 16.1 % (11.5-14.5); WBC 9.7 10x3/uL (4.8-10.8)
[2018-01-25 06:57] LABS: MCV 95.9 fL (80.0-100.0)
[2018-01-25 07:04] LABS: ALBUMIN 3.1 g/dL (3.4-5.0); ANION GAP 11.2 mmol/L (8-16); BILIRUBIN - TOTAL 0.62 mg/dL (0.2-1.3); CALCIUM 7.6 mg/dL (8.5-10.1); CARBON DIOXIDE 30.6 mmol/L (21.0-32.0); POTASSIUM - SERUM 3.8 mmol/L (3.5-5.1); PROTEIN - SERUM 5.4 g/dL (6.4-8.2)
[2018-01-25 07:28] LABS: PLATELET ESTIMATE DECREASED
[2018-01-26] VITALS (24 sets, daily range): BP systolic 110–150; BP diastolic 47–71
[2018-01-26 06:06] LABS: BASOPHILS 0 % (0-2); EOSINOPHILS 0 % (0-7); HEMATOCRIT 26.1 % (42.0-54.0); HEMOGLOBIN 8.5 g/dL (13.5-17.5); IMMATURE GRANULOCYTES 0.1 % (0-5); LYMPHOCYTES 10.4 % (15-50); MCH 31.5 pg (26.0-34.0); MCHC 32.6 g/dL (31.0-37.0); MCV 96.7 fL (80.0-100.0); MEAN PLATELET VOLUME 9.9 fL (7.4-10.4); MONOCYTES 8.9 % (2-11); NEUTROPHILS 80.6 % (40-80); PLATELET COUNT 100 10x3/uL (130-400); RDW 15.6 % (11.5-14.5)
[2018-01-26 06:09] LABS: WBC 6.7 10x3/uL (4.8-10.8)
[2018-01-26 06:18] LABS: APTT 40.3 SECONDS (22.8-39.4); INR 1.17 (0.85-1.17); PROTIME 14.5 SECONDS (11.6-15.0)
[2018-01-26 06:19] LABS: D-DIMER-QUANTITATIVE 1.08 ug/mLFEU (0.20-0.54)
[2018-01-26 07:22] LABS: ALBUMIN 2.6 g/dL (3.4-5.0); ALKALINE PHOSPHATASE 48 U/L (46-116); CALCIUM 7.8 mg/dL (8.5-10.1); CARBON DIOXIDE 32.3 mmol/L (21.0-32.0); CHLORIDE - SERUM 107 mmol/L (98-107); CREATININE - SERUM 1.8 mg/dL (0.6-1.3); FERRITIN 269 ng/mL (3-244); GLUCOSE 131 mg/dL (74-106); LDH 277 U/L (85-227); MAGNESIUM - SERUM 3.4 mg/dL (1.8-2.4); POTASSIUM - SERUM 3.6 mmol/L (3.5-5.1); PROTEIN - SERUM 5.4 g/dL (6.4-8.2); SODIUM 144 mmol/L (136-145); eGFR NON AFRICAN AMERICAN 39 mL/min (90-120)
[2018-01-26 07:24] LABS: ALT (SGPT) 55 U/L (10-68); CALC OSMOLALITY 301 mosm/kg (275-300); CREATINE KINASE 3380 UL (21-232); UREA NITROGEN 48 mg/dL (7-18)
[2018-01-26 07:26] LABS: CKMB 26.6 U/L (0.0-3.6)
[2018-01-26 22:28] LABS: CREATININE - URINE 147.4 mg/dL (30-125); POTASSIUM - URINE 37.4 MMOL/L (12.0-62.0); PROTEIN - URINE 100.6 mg/dL (0.0-11.9)
[2018-01-26 22:36] LABS: APPEARANCE CLEAR (CLEAR); BILIRUBIN NEGATIVE (NEGATIVE); COLOR DK YELLOW (YELLOW); GLUCOSE NEGATIVE (NEGATIVE); KETONE NEGATIVE (NEGATIVE); NITRITE NEGATIVE (NEGATIVE); PROTEIN TRACE mg/dL (NEGATIVE); SPECIFIC GRAVITY 1.015 (1.005-1.020); UROBILINOGEN NORMAL (NORMAL)
[2018-01-26 22:42] LABS: AMORPHOUS SEDIMENT <1+ /lpf (NONE SEEN); BACTERIA MODERATE /hpf (NONE SEEN); EPITHELIAL CELLS OCC /hpf (0-5); GRANULAR CAST RARE /lpf (NONE SEEN); HYALINE CAST OCC /lpf (NONE SEEN); SPERMATOZOA 0-5 /hpf (NONE SEEN); WHITE CELLS - URINE 0-5 /hpf (0-5)
[2018-01-27] VITALS (23 sets, daily range): BP systolic 115–139; BP diastolic 45–69
[2018-01-27 05:56] LABS: BASOPHILS 0 % (0-2); EOSINOPHILS 0.2 % (0-7); HEMATOCRIT 25.2 % (42.0-54.0); HEMOGLOBIN 8.2 g/dL (13.5-17.5); IMMATURE GRANULOCYTES 0.2 % (0-5); LYMPHOCYTES 11.6 % (15-50); MCH 31.4 pg (26.0-34.0); MCHC 32.5 g/dL (31.0-37.0); MCV 96.6 fL (80.0-100.0); PLATELET COUNT 123 10x3/uL (130-400); RBC 2.61 10x6/uL (4.20-6.10); RDW 15.2 % (11.5-14.5); WBC 5.7 10x3/uL (4.8-10.8)
[2018-01-27 06:24] LABS: ALBUMIN 2.4 g/dL (3.4-5.0); ANION GAP 7.2 mmol/L (8-16); BILIRUBIN - TOTAL 0.77 mg/dL (0.2-1.3); CALCIUM 7.7 mg/dL (8.5-10.1); CARBON DIOXIDE 33.5 mmol/L (21.0-32.0); CREATININE - SERUM 1.4 mg/dL (0.6-1.3); POTASSIUM - SERUM 3.7 mmol/L (3.5-5.1); PROTEIN - SERUM 5.2 g/dL (6.4-8.2)
[2018-01-28] VITALS (24 sets, daily range): BP systolic 127–153; BP diastolic 44–99; Ht 175.3 cm; Wt 83.6 kg
[2018-01-28 07:03] LABS: BASOPHILS 0.2 % (0-2); EOSINOPHILS 1.1 % (0-7); HEMATOCRIT 24.7 % (42.0-54.0); HEMOGLOBIN 7.9 g/dL (13.5-17.5); IMMATURE GRANULOCYTES 0.4 % (0-5); LYMPHOCYTES 13.2 % (15-50); MCH 30.7 pg (26.0-34.0); MCV 96.1 fL (80.0-100.0); MEAN PLATELET VOLUME 9.1 fL (7.4-10.4); MONOCYTES 11.9 % (2-11); NEUTROPHILS 73.2 % (40-80); RBC 2.57 10x6/uL (4.20-6.10); RDW 14.6 % (11.5-14.5); WBC 5.5 10x3/uL (4.8-10.8)
[2018-01-28 07:17] LABS: PLATELET COUNT 149 10x3/uL (130-400)
[2018-01-28 07:26] LABS: ALBUMIN 2.4 g/dL (3.4-5.0); ANION GAP 7.5 mmol/L (8-16); BILIRUBIN - TOTAL 0.8 mg/dL (0.2-1.3); CALCIUM 7.6 mg/dL (8.5-10.1); CARBON DIOXIDE 30.2 mmol/L (21.0-32.0); CREATININE - SERUM 1.1 mg/dL (0.6-1.3); POTASSIUM - SERUM 3.7 mmol/L (3.5-5.1); PROTEIN - SERUM 5.2 g/dL (6.4-8.2)
[2018-01-29] VITALS (23 sets, daily range): BP systolic 104–157; BP diastolic 55–73
[2018-01-29 06:24] LABS: BASOPHILS 0.1 % (0-2); EOSINOPHILS 1.2 % (0-7); HEMATOCRIT 25.5 % (42.0-54.0); HEMOGLOBIN 8.3 g/dL (13.5-17.5); LYMPHOCYTES 10.7 % (15-50); MCH 31.1 pg (26.0-34.0); MCHC 32.5 g/dL (31.0-37.0); MCV 95.5 fL (80.0-100.0); MEAN PLATELET VOLUME 9.2 fL (7.4-10.4); MONOCYTES 10.3 % (2-11); NEUTROPHILS 76.7 % (40-80); RBC 2.67 10x6/uL (4.20-6.10); RDW 14.3 % (11.5-14.5); WBC 6.7 10x3/uL (4.8-10.8)
[2018-01-29 06:25] LABS: PLATELET COUNT 189 10x3/uL (130-400)
[2018-01-29 06:38] LABS: ANION GAP 10.6 mmol/L (8-16); CALCIUM 7.6 mg/dL (8.5-10.1); CARBON DIOXIDE 30.9 mmol/L (21.0-32.0); CREATININE - SERUM 1.3 mg/dL (0.6-1.3); MAGNESIUM - SERUM 2.3 mg/dL (1.8-2.4); POTASSIUM - SERUM 3.5 mmol/L (3.5-5.1)
[2018-01-29 13:21] LABS: OSMOLALITY - URINE 645 (())
[2018-01-30] VITALS (23 sets, daily range): BP systolic 100–140; BP diastolic 50–67
[2018-01-30 05:19] LABS: IMMUNOGLOBULIN E 10 IU/mL (0-100)
[2018-01-30 05:49] LABS: BASOPHILS 0.1 % (0-2); EOSINOPHILS 1.3 % (0-7); HEMATOCRIT 26.1 % (42.0-54.0); HEMOGLOBIN 8.4 g/dL (13.5-17.5); IMMATURE GRANULOCYTES 1.4 % (0-5); LYMPHOCYTES 14.7 % (15-50); MCH 30.8 pg (26.0-34.0); MCHC 32.2 g/dL (31.0-37.0); MCV 95.6 fL (80.0-100.0); MEAN PLATELET VOLUME 8.8 fL (7.4-10.4); MONOCYTES 10.6 % (2-11); NEUTROPHILS 71.9 % (40-80); PLATELET COUNT 213 10x3/uL (130-400); RBC 2.73 10x6/uL (4.20-6.10); RDW 14.3 % (11.5-14.5); WBC 7.1 10x3/uL (4.8-10.8)
[2018-01-30 06:04] LABS: CALCIUM 7.5 mg/dL (8.5-10.1); CARBON DIOXIDE 32.7 mmol/L (21.0-32.0); CREATININE - SERUM 1.4 mg/dL (0.6-1.3); POTASSIUM - SERUM 3.7 mmol/L (3.5-5.1)
[2018-01-31] VITALS (8 sets, daily range): BP systolic 124–145; BP diastolic 40–64
[2018-01-31 06:08] LABS: BASOPHILS 0.3 % (0-2); EOSINOPHILS 1.5 % (0-7); HEMATOCRIT 26.3 % (42.0-54.0); HEMOGLOBIN 8.5 g/dL (13.5-17.5); IMMATURE GRANULOCYTES 1.7 % (0-5); LYMPHOCYTES 13.4 % (15-50); MCH 31.1 pg (26.0-34.0); MCHC 32.3 g/dL (31.0-37.0); MCV 96.3 fL (80.0-100.0); MONOCYTES 11.1 % (2-11); RBC 2.73 10x6/uL (4.20-6.10); RDW 14.8 % (11.5-14.5); WBC 7.9 10x3/uL (4.8-10.8)
[2018-01-31 06:12] LABS: PLATELET COUNT 266 10x3/uL (130-400)
[2018-01-31 06:28] LABS: ANION GAP 9.6 mmol/L (8-16); CALCIUM 7.8 mg/dL (8.5-10.1); CARBON DIOXIDE 31.6 mmol/L (21.0-32.0); CREATININE - SERUM 1.5 mg/dL (0.6-1.3); POTASSIUM - SERUM 4.2 mmol/L (3.5-5.1)
[2018-01-31] MEDS ORDERED: IPRAT-ALBUT 0.5-3 ML UPD (10:41)
[2018-01-31] MEDS ORDERED: ALBUTEROL2.5 MG/3 M UPD (10:41)
[2018-01-31] MEDS ORDERED: HEMOCYTE PLUS C1 CAP PO (10:41)
[2018-01-31] MEDS ORDERED: CORDARONE200 MG PO (10:43)
[2018-01-31] MEDS ORDERED: ACETAMINOPHEN325 MG PO (10:44)
[2018-01-31] MEDS ORDERED: NORCO-5 PO (10:45)
[2018-01-31] MEDS ORDERED: LASIX40 MG PO (10:46)
[2018-01-31] MEDS ORDERED: FLORAJEN3 CAPS460 MG PO (10:48)
[2018-01-31] MEDS ORDERED: K-DUR20 MEQ PO (10:48)
[2018-01-31] MEDS ORDERED: DULCOLAX10 MG/SUPP RC (10:48)
[2018-01-31] MEDS ORDERED: COLACE100 MG PO (10:49)
[2018-01-31] MEDS ORDERED: SENOKOT-S TABLE1 TAB PO (10:49)
[2018-01-31] MEDS ORDERED: LOVENOX40 MG/0.4 SC (11:08)
== END 2018-01-31 15:02 | DRG 235 ==
LOC: D.SDCHOLD 05:00 → D.CVICU 05:00 → D.SDCHOLD 07:30 → D.CVICU 13:16
PROVIDERS: Internal Medicine Cardiovascular Disease; Internal Medicine Pulmonary Disease
PROC: 021209W Bypass Coronary Artery, Three Arteries from Aorta with Autologous Venous Tissue, Open Approach (ICD-10-PCS; 2018-01-23)
PROC: 06BP0ZZ Excision of Right Saphenous Vein, Open Approach (ICD-10-PCS; 2018-01-23)
PROC: 5A1221Z Performance of Cardiac Output, Continuous (ICD-10-PCS; 2018-01-23)
PROC: B24BZZ4 Ultrasonography of Heart with Aorta, Transesophageal (ICD-10-PCS; 2018-01-23)
PROC: 02100ZC Bypass Coronary Artery, One Artery from Thoracic Artery, Open Approach (ICD-10-PCS; principal; 2018-01-23 07:30)
PROC: 5A09357 Assistance with Respiratory Ventilation, Less than 24 Consecutive Hours, Continuous Positive Airway Pressure (ICD-10-PCS; 2018-01-25)
DX: I25.119 Atherosclerotic heart disease of native coronary artery with unspecified angina pectoris (principal); J96.01 Acute respiratory failure with hypoxia; J15.6 Pneumonia due to other Gram-negative bacteria; I50.21 Acute systolic (congestive) heart failure; D62 Acute posthemorrhagic anemia; J44.1 Chronic obstructive pulmonary disease with (acute) exacerbation; J98.11 Atelectasis; N17.9 Acute kidney failure, unspecified; E87.0 Hyperosmolality and hypernatremia; G72.81 Critical illness myopathy; D69.59 Other secondary thrombocytopenia; N40.0 Benign prostatic hyperplasia without lower urinary tract symptoms; G25.81 Restless legs syndrome; R01.1 Cardiac murmur, unspecified; I07.9 Rheumatic tricuspid valve disease, unspecified; K21.9 Gastro-esophageal reflux disease without esophagitis; R41.82 Altered mental status, unspecified; I48.0 Paroxysmal atrial fibrillation

== ENCOUNTER 2018-01-31 15:27 | Inpatient (IN) | payer MEDICARE, BC ==
[~2018-01-31] VITALS: Ht 175.3 cm; Wt 79.0 kg
--- NOTE | ~2018-01-31 | RHP ---
PATIENT: BRENDA CHAVARRIA MEDICAL RECORD: [id number] ACCOUNT: [id number] LOCATION:[facility] : 41 ADMISSION DATE: 01/31/18 REHABILITATION HISTORY AND PHYSICAL EXAMINATION POST ADMISSION PHYSICIAN EXAMINATION POST-ADMISSION PHYSICAL EXAM AND HISTORY AND PHYSICAL DATE OF ADMISSION: 01/31/2018 ADMITTING DIAGNOSIS: Critical illness myopathy. HISTORY OF PRESENT ILLNESS: The patient is a 77-year-old gentleman admitted with critical illness myopathy secondary to prolonged hospitalization and postop complications. He underwent coronary artery bypass grafting times 4 on 01/23/2018. No problems weaning off the vent postop. He had a transesophageal echo with an EF of 40%. He developed hypoxemia and decreased level of consciousness. ABG showed a pH of 7.44, pCO2 of 48, pO2 of 47 and a saturation of 83%. Chest x-ray showed bibasilar atelectasis with small effusions. Pulmonary was consulted. He has past medical history of arrhythmia, angina, coronary artery disease, neuropathy, restless leg syndrome, suspected COPD and is followed by pulmonary at [facility] with p.r.n. inhalers. He has got a history of gastroesophageal reflux disease, benign prostatic hypertrophy, and depression. He has had prolonged immobility, progressive generalized weakness, especially in his lower extremities affecting his exercise tolerance. He is very fatigued with limited flexion and extension of his lower extremities. Proximal muscle strength is decreased greater than distal. He is mod to max assist for ADLs, mod to max assist for sit to stand and bed to chair. Previously, he was living with his , was independent with ADLs and mobility without assistive device. He is motivated to regain his strength and return back to his prior level of functioning. COMORBIDITIES: In this patient include COPD, pleural effusion, infiltrates, hospital-acquired pneumonia with gram-negative rony, COPD, premature atrial contractions, acute mental status changes, elevated BUN and creatinine, prerenal azotemia, anemia, BPH, gastroesophageal reflux disease, depression, elevated LFTs, hypernatremia, fatigue, weakness, hypoxia, self-care deficit and hypertension. PAST MEDICAL HISTORY: Significant for neuropathy, restless legs, hypertension, arrhythmia, COPD, acid reflux, and depression. PAST SURGICAL HISTORY: Includes back surgery, cataracts, thumb surgery, left foot surgery, and right foot surgery. ALLERGIES: PENICILLIN. MEDICATIONS: Current medications include Flomax 0.4 mg daily. He is on Floranex 460 mg daily, furosemide 40 mg daily, Ariadna 60 mg daily, aspirin chewable 81 mg daily, Levaquin 750 mg for a total of 4 doses, [facility]. He is on polyethylene glycol 17 grams in 8 ounces of water daily, Ambien 5 mg at bedtime p.r.n., Senokot 2 tabs at bedtime, Requip 0.25 mg at bedtime, potassium chloride 20 mEq t.i.d., [place] 5/325 one tab q.6 hours p.r.n., Neurontin 600 mg t.i.d., iron supplementation 1 cap b.i.d. He is on Lovenox 40 mg b.i.d., Colace 100 mg b.i.d., Dulcolax 10 mg b.i.d. p.r.n. constipation, Cordarone 200 b.i.d. HISTORY AND PHYSICAL [id number] DEON,BRENDA R and Tylenol 650 q.3 hours p.r.n. HABITS: No current alcohol or tobacco use. FAMILY HISTORY: Noncontributory. SOCIAL HISTORY: The patient hopes to return back home and get back to his prior level of functioning. REVIEW OF SYSTEMS: GENERAL: Does complain of some weakness or fatigue. HEENT: Denies cold, cough, or congestion. CARDIOVASCULAR: He denies chest pain. PHYSICAL EXAMINATION: VITAL SIGNS: Stable, afebrile. GENERAL: Elderly gentleman in no acute distress, alert upon exam. HEENT: Normocephalic and atraumatic. Mucosa moist. NECK: Supple with no lymphadenopathy. LUNGS: Clear in upper [place]. HEART: Regular rate and rhythm. No murmurs, rubs or gallops. ABDOMEN: Benign. EXTREMITIES: No clubbing, cyanosis or edema. NEUROLOGIC: He is intact other than the proximal muscle weakness. LABORATORY DATA: White count 7.9, H&H 8.5 and 26.3 and platelet count of 301. Sodium is 138, potassium 4.5, BUN and creatinine of 22 and 1.5 and blood sugar is noted to be 104. ASSESSMENT: This is a 77-year-old gentleman admitted to the rehab with a working diagnosis of critical illness myopathy. The patient has potential to make improvement. We instituted the following multidisciplinary therapies include, but not limited to physical, occupational, respiratory, speech, nutritional services, prosthetics and orthotics. Given his complex medical condition and risk for more complications, rehabilitation services cannot be provided at a low level of care such as penitentiary facility. PLAN: 1. Admit to [facility] for intensive inpatient therapy to include the following disciplines: A. Physical therapy to improve gait, all transfer skills and bed mobility to a modified independent level. B. Occupational therapy to improve activities of daily living to a modified independent level. C. Case management to assist with discharge planning and placement options. D. Nutrition to assist with nutritional needs. E. Rehabilitation nursing to assist in monitoring the patient's underlying medical conditions and to assist with any type of bowel or bladder management. 2. The patient's current medical care and medication will be continued. 3. The patient will be placed on standard fall precautions. 4. The patient's estimated length of stay is approximately 7-10 days. 5. We will repeat his CBC and watch his H&H, will transfuse if necessary. TRANSINT:[id number] Voice Confirmation ID: [id number] DOCUMENT ID: [id number] HISTORY AND PHYSICAL [id number] BRENDA CHAVARRIA notes whether there has been none or any medical/functional change since admission: - No change since prescreen. JAZMIN attests patient continues to be appropriate for IRF: - Continues to be appropriate. ADENIKE MI MD at 0747 CC: [id number] DICTATION DATE: 02/01/18 0846 STRATEGIC PLANNING MANAGER: 02/01/18 0957 ADM IN [place] [id number] [place] [address]
[~2018-01-31 15:27] MED LIST changes: +ACETAMINOPHEN325 MG PO; +ALBUTEROL2.5 MG/3 M UPD; +BAYER CHEWABLE81 MG PO; +COLACE100 MG PO; +CORDARONE200 MG PO; +DULCOLAX10 MG/SUPP RC; +FLORAJEN3 CAPS460 MG PO; +HEMOCYTE PLUS C1 CAP PO; +IPRAT-ALBUT 0.5-3 ML UPD; +K-DUR20 MEQ PO; +LASIX40 MG PO; +LOVENOX40 MG/0.4 SC; +NORCO-5 PO; +SENOKOT-S TABLE1 TAB PO
[2018-01-31 16:17] VITALS: BP 132/47; BMI 25.4
[2018-01-31 19:00] VITALS: BP 126/52
[2018-02-01 07:04] LABS: BASOPHILS 0.3 % (0-2); EOSINOPHILS 3.1 % (0-7); HEMATOCRIT 26.3 % (42.0-54.0); HEMOGLOBIN 8.5 g/dL (13.5-17.5); IMMATURE GRANULOCYTES 1.4 % (0-5); LYMPHOCYTES 15.1 % (15-50); MCH 31.3 pg (26.0-34.0); MCHC 32.3 g/dL (31.0-37.0); MCV 96.7 fL (80.0-100.0); MEAN PLATELET VOLUME 8.9 fL (7.4-10.4); MONOCYTES 9.8 % (2-11); NEUTROPHILS 70.3 % (40-80); PLATELET COUNT 301 10x3/uL (130-400); RBC 2.72 10x6/uL (4.20-6.10); RDW 14.8 % (11.5-14.5); WBC 7.9 10x3/uL (4.8-10.8)
[2018-02-01 07:50] LABS: ANION GAP 8.6 mmol/L (8-16); CALCIUM 8.1 mg/dL (8.5-10.1); CARBON DIOXIDE 29.9 mmol/L (21.0-32.0); CREATININE - SERUM 1.5 mg/dL (0.6-1.3); POTASSIUM - SERUM 4.5 mmol/L (3.5-5.1)
[2018-02-01 08:00] VITALS: BP 114/65
[2018-02-01 10:13] VITALS: Ht 175.3 cm; Wt 79.0 kg
[2018-02-01 19:00] VITALS: BP 119/43
[2018-02-03 06:00] VITALS: BP 116/53
[2018-02-03 08:00] VITALS: BP 120/43
[2018-02-03 21:00] VITALS: BP 102/51
[2018-02-04 07:28] LABS: BASOPHILS 0.3 % (0-2); EOSINOPHILS 1.9 % (0-7); HEMATOCRIT 25.1 % (42.0-54.0); IMMATURE GRANULOCYTES 1.5 % (0-5); LYMPHOCYTES 18.4 % (15-50); MCH 30.9 pg (26.0-34.0); MCHC 31.9 g/dL (31.0-37.0); MCV 96.9 fL (80.0-100.0); MEAN PLATELET VOLUME 8.3 fL (7.4-10.4); MONOCYTES 9.1 % (2-11); NEUTROPHILS 68.8 % (40-80); PLATELET COUNT 324 10x3/uL (130-400); RBC 2.59 10x6/uL (4.20-6.10); RDW 14.7 % (11.5-14.5); WBC 7.9 10x3/uL (4.8-10.8)
[2018-02-04 07:43] LABS: ANION GAP 8.7 mmol/L (8-16); CARBON DIOXIDE 28.8 mmol/L (21.0-32.0); CREATININE - SERUM 1.7 mg/dL (0.6-1.3); POTASSIUM - SERUM 4.5 mmol/L (3.5-5.1)
[2018-02-04 08:23] VITALS: BP 125/51
[2018-02-04 16:45] VITALS: BP 107/50
[2018-02-04 17:30] VITALS: BP 135/52
[2018-02-04 19:15] VITALS: BP 130/48
[2018-02-05 08:28] VITALS: BP 130/54
[2018-02-05 19:00] VITALS: BP 133/63
[2018-02-06 06:57] LABS: BASOPHILS 0.1 % (0-2); EOSINOPHILS 3.3 % (0-7); HEMATOCRIT 29.4 % (42.0-54.0); HEMOGLOBIN 9.5 g/dL (13.5-17.5); IMMATURE GRANULOCYTES 1.1 % (0-5); LYMPHOCYTES 15.6 % (15-50); MCH 31.1 pg (26.0-34.0); MCHC 32.3 g/dL (31.0-37.0); MCV 96.4 fL (80.0-100.0); MEAN PLATELET VOLUME 8.5 fL (7.4-10.4); MONOCYTES 9.2 % (2-11); NEUTROPHILS 70.7 % (40-80); PLATELET COUNT 331 10x3/uL (130-400); RBC 3.05 10x6/uL (4.20-6.10); RDW 14.8 % (11.5-14.5); WBC 7.9 10x3/uL (4.8-10.8)
[2018-02-06 07:24] LABS: ANION GAP 10.2 mmol/L (8-16); CARBON DIOXIDE 28.8 mmol/L (21.0-32.0); CREATININE - SERUM 1.5 mg/dL (0.6-1.3)
[2018-02-06 08:19] VITALS: BP 142/67
[2018-02-06 19:00] VITALS: BP 122/60
[2018-02-07 08:25] VITALS: BP 117/51
[2018-02-07 19:00] VITALS: BP 151/60
[2018-02-08 06:22] LABS: BASOPHILS 0.2 % (0-2); EOSINOPHILS 2.9 % (0-7); HEMATOCRIT 27.7 % (42.0-54.0); HEMOGLOBIN 8.8 g/dL (13.5-17.5); IMMATURE GRANULOCYTES 1.1 % (0-5); LYMPHOCYTES 16.2 % (15-50); MCHC 31.8 g/dL (31.0-37.0); MCV 97.5 fL (80.0-100.0); MEAN PLATELET VOLUME 8.7 fL (7.4-10.4); MONOCYTES 11.1 % (2-11); NEUTROPHILS 68.5 % (40-80); PLATELET COUNT 300 10x3/uL (130-400); RBC 2.84 10x6/uL (4.20-6.10); RDW 14.8 % (11.5-14.5)
[2018-02-08 06:29] LABS: WBC 5.6 10x3/uL (4.8-10.8)
[2018-02-08 07:02] LABS: ANION GAP 11.1 mmol/L (8-16); CALCIUM 7.7 mg/dL (8.5-10.1); CARBON DIOXIDE 28.3 mmol/L (21.0-32.0); CREATININE - SERUM 1.4 mg/dL (0.6-1.3); POTASSIUM - SERUM 4.4 mmol/L (3.5-5.1)
[2018-02-08 08:14] VITALS: BP 136/65
[2018-02-08 19:00] VITALS: BP 139/58
[2018-02-09 08:00] VITALS: BP 130/55
[2018-02-10 11:13] VITALS: BP 134/67
[2018-02-10 20:00] VITALS: BP 127/55
[2018-02-11 08:00] VITALS: BP 143/71
[2018-02-11 10:23] LABS: ANION GAP 9.4 mmol/L (8-16); CALCIUM 8.1 mg/dL (8.5-10.1); CARBON DIOXIDE 30.7 mmol/L (21.0-32.0); CREATININE - SERUM 1.3 mg/dL (0.6-1.3); POTASSIUM - SERUM 4.1 mmol/L (3.5-5.1)
[2018-02-11 10:42] LABS: BASOPHILS 0.5 % (0-2); EOSINOPHILS 2.6 % (0-7); HEMATOCRIT 34.9 % (42.0-54.0); IMMATURE GRANULOCYTES 0.4 % (0-5); LYMPHOCYTES 18.9 % (15-50); MCH 31.3 pg (26.0-34.0); MCHC 31.5 g/dL (31.0-37.0); MCV 99.1 fL (80.0-100.0); MEAN PLATELET VOLUME 8.6 fL (7.4-10.4); NEUTROPHILS 70.6 % (40-80); PLATELET COUNT 299 10x3/uL (130-400); RBC 3.52 10x6/uL (4.20-6.10); WBC 5.5 10x3/uL (4.8-10.8)
[2018-02-11 19:00] VITALS: BP 132/55
[2018-02-12] MEDS ORDERED: VANCOMYCIN 1 GM/1 G1 IV (07:46)
[2018-02-12 08:22] VITALS: BP 143/75
[2018-02-12 19:00] VITALS: BP 140/72
[2018-02-13 08:16] VITALS: BP 128/67
[2018-02-13 14:04] LABS: CREATININE - SERUM 1.4 mg/dL (0.6-1.3); VANCOMYCIN - TROUGH 7.3 ug/mL (10.0-20.0)
[2018-02-13 19:00] VITALS: BP 137/57
[2018-02-14 08:00] VITALS: BP 135/64
[2018-02-14 19:52] VITALS: BP 132/54
[2018-02-15 08:00] VITALS: BP 128/56
[2018-02-15 19:55] VITALS: BP 106/43
[2018-02-16 08:00] VITALS: BP 106/67
[2018-02-17 08:11] VITALS: BP 125/58
[2018-02-17 18:00] VITALS: BP 119/51
[2018-02-18 07:05] LABS: BASOPHILS 0.5 % (0-2); EOSINOPHILS 7.5 % (0-7); HEMATOCRIT 30.4 % (42.0-54.0); HEMOGLOBIN 9.8 g/dL (13.5-17.5); IMMATURE GRANULOCYTES 0.2 % (0-5); LYMPHOCYTES 31.1 % (15-50); MCH 31.1 pg (26.0-34.0); MCHC 32.2 g/dL (31.0-37.0); MCV 96.5 fL (80.0-100.0); MEAN PLATELET VOLUME 8.8 fL (7.4-10.4); MONOCYTES 10.3 % (2-11); NEUTROPHILS 50.4 % (40-80); RBC 3.15 10x6/uL (4.20-6.10); RDW 14.8 % (11.5-14.5); WBC 4.3 10x3/uL (4.8-10.8)
[2018-02-18 07:11] LABS: PLATELET COUNT 181 10x3/uL (130-400)
[2018-02-18 07:35] LABS: ANION GAP 11.1 mmol/L (8-16); CALCIUM 7.8 mg/dL (8.5-10.1); CARBON DIOXIDE 29.6 mmol/L (21.0-32.0); CREATININE - SERUM 1.4 mg/dL (0.6-1.3); POTASSIUM - SERUM 3.7 mmol/L (3.5-5.1)
[2018-02-18 07:52] VITALS: BP 124/68
[2018-02-18] MEDS ORDERED: LASIX40 MG PO (08:32)
[2018-02-18] MEDS ORDERED: NORCO-5 PO (08:32)
[2018-02-18] MEDS ORDERED: K-DUR20 MEQ PO (08:34)
[2018-02-18 19:00] VITALS: BP 147/62
[2018-02-19 08:00] VITALS: BP 128/64
[2018-02-19 18:00] VITALS: BP 125/60
[2018-02-20 08:22] VITALS: BP 137/68
== END 2018-02-20 09:15 | disposition home health service (06) | DRG 91 ==
LOC: D.REHAB 15:27
PROVIDERS: Emergency Medicine; Internal Medicine Cardiovascular Disease
PROC: 05HC33Z Insertion of Infusion Device into Left Basilic Vein, Percutaneous Approach (ICD-10-PCS; principal; 2018-02-15)
PROC: B54NZZA Ultrasonography of Left Upper Extremity Veins, Guidance (ICD-10-PCS; 2018-02-15)
DX: G72.81 Critical illness myopathy (principal); J15.6 Pneumonia due to other Gram-negative bacteria; J90 Pleural effusion, not elsewhere classified; E87.0 Hyperosmolality and hypernatremia; J44.1 Chronic obstructive pulmonary disease with (acute) exacerbation; Y95 Nosocomial condition; R41.82 Altered mental status, unspecified; R79.89 Other specified abnormal findings of blood chemistry; D64.9 Anemia, unspecified; N40.0 Benign prostatic hyperplasia without lower urinary tract symptoms; K21.9 Gastro-esophageal reflux disease without esophagitis; F32.9 Major depressive disorder, single episode, unspecified; R53.83 Other fatigue; R53.1 Weakness; R09.02 Hypoxemia; I10 Essential (primary) hypertension; I49.49 Other premature depolarization; I25.119 Atherosclerotic heart disease of native coronary artery with unspecified angina pectoris

== ENCOUNTER → 2018-03-14 13:29 | Outpatient (CLI) | payer MEDICARE, BC ==
[2018-02-01 10:13] VITALS: BMI 25.4
[~2018-03-14 13:29] MED LIST changes: +VANCOMYCIN 1 GM/1 G1 IV
[2018-03-14 14:24] LABS: HEMATOCRIT 37.6 % (42.0-54.0); HEMOGLOBIN 12.3 g/dL (13.5-17.5); MCHC 32.7 g/dL (31.0-37.0); MCV 94.7 fL (80.0-100.0); MEAN PLATELET VOLUME 8.9 fL (7.4-10.4); RBC 3.97 10x6/uL (4.20-6.10); RDW 13.6 % (11.5-14.5); WBC 5.3 10x3/uL (4.8-10.8)
[2018-03-14 14:45] LABS: ALBUMIN 3.3 g/dL (3.4-5.0); BILIRUBIN - TOTAL 0.33 mg/dL (0.2-1.3); CALCIUM 8.2 mg/dL (8.5-10.1); CARBON DIOXIDE 28.9 mmol/L (21.0-32.0); CREATININE - SERUM 1.6 mg/dL (0.6-1.3); POTASSIUM - SERUM 3.9 mmol/L (3.5-5.1); PROTEIN - SERUM 6.7 g/dL (6.4-8.2)
== END | disposition home or self-care (01) ==
LOC: D.RAD 08:15
PROVIDERS: Internal Medicine Cardiovascular Disease
DX: I25.10 Atherosclerotic heart disease of native coronary artery without angina pectoris (principal); J90 Pleural effusion, not elsewhere classified; D64.9 Anemia, unspecified

== ENCOUNTER → 2018-08-14 17:13 | Outpatient (CLI) | payer MEDICARE, BC ==
[2018-02-01 10:13] VITALS: BMI 25.4
[2018-08-14 18:04] LABS: CHOL - HDL RATIO 3.9 ratio (2.3-4.9); LDL-HDL RATIO 2.6 ratio (1.5-3.5)
== END | disposition home or self-care (01) ==
LOC: D.LABREF 17:13
PROVIDERS: Nurse Practitioner Adult Health
DX: I10 Essential (primary) hypertension (principal)

== ENCOUNTER → 2018-12-31 08:48 | Outpatient (CLI) | payer MEDICARE, BC ==
[2018-02-01 10:13] VITALS: BMI 25.4
== END | disposition home or self-care (01) ==
LOC: D.RT 08:48
PROVIDERS: ATTEND Internal Medicine Pulmonary Disease
DX: J44.9 Chronic obstructive pulmonary disease, unspecified (principal)

== ENCOUNTER → 2019-05-19 12:33 | Outpatient (CLI) | payer MEDICARE, BC ==
[2018-02-01 10:13] VITALS: BMI 25.4
== END | disposition home or self-care (01) ==
LOC: D.HCCECHO 12:33
PROVIDERS: ATTEND Internal Medicine Cardiovascular Disease
DX: I07.1 Rheumatic tricuspid insufficiency (principal)

== ENCOUNTER 2019-07-16 10:20 | Day surgery (SDC) | payer MEDICARE, BC ==
[2019-07-15 11:57] LABS: HEMATOCRIT 42.1 % (42.0-54.0); HEMOGLOBIN 14.3 g/dL (13.5-17.5); MCH 33.2 pg (26.0-34.0); MCV 97.7 fL (80.0-100.0); MEAN PLATELET VOLUME 8.8 fL (7.4-10.4); RBC 4.31 10x6/uL (4.20-6.10); RDW 13.1 % (11.5-14.5); WBC 5.1 10x3/uL (4.8-10.8)
[~2019-07-16] VITALS: Ht 175.3 cm; Wt 78.0 kg
--- NOTE | ~2019-07-16 | OP ---
PATIENT NAME: KARINA CHAVARRIA MEDICAL RECORD: [id number] :42 LOCATION:D.[place] ADMISSION DATE: SURGEON: GENARO GIRON DPM DATE OF OPERATION: 07/16/2019 PREOPERATIVE DIAGNOSIS: Right bimalleolar ankle fracture. POSTOPERATIVE DIAGNOSIS: Right bimalleolar ankle fracture. PROCEDURE: ORIF bimalleolar fracture, right ankle. ANESTHESIA: Preoperative popliteal block per the anesthesia department as well as intraoperative general anesthesia. HEMOSTASIS: Right thigh tourniquet at 350 mmHg. OPERATIVE DETAILS: The patient was taken to the OR and placed in the operative table in a supine position. This was followed by induction of general anesthesia. The right extremity was then prepped and draped in usual aseptic technique followed by exsanguination and inflation of tourniquet. A #15 blade was used to create an incision along the lateral aspect of the right ankle along the coursing of the fibula. The incision was deepened down through subcutaneous tissue to the lateral fibula. The fracture was visualized and mobilized and the appropriate amount of the fibula was exposed. The ankle was manipulated to allow proper lengthening of the fibula. Once proper lengthening was achieved, bone clamps were used to clamp the fracture site. An interfrag screw was then placed across the fracture and then a 1/3 tubular plate was then placed on the lateral aspect of the fibula with excellent rigid internal fixation as well as alignment, verified of the ankle mortise. C-arm was used to verify good placement of screws. The wound was flushed. At this time, the medial malleolar fracture was addressed utilizing C-arm and using particular percutaneous technique. Two K-wires were shot to the medial malleolus and up into the tibia. Excellent alignment was noted. Two screws were then placed under fluoroscopy over the guidewires; one 40 mm in length and the other one 34 mm in length and 4.0 diameter headless screws. Excellent compression was noted as well as alignment with fluoroscopy. The K-wires were removed. The small stab incisions were closed with 2-0 Vicryl in a simple interrupted technique followed by Dermabond. The lateral wound was then closed with 2-0 Vicryl for deep tissue as well as subcutaneous tissue, 4-0 Rapide was used for subcutaneous tissue and skin romi were used to close the wound. Adaptic, 4 x 4's and Conform were used to dress all wounds followed by application of a modified Perez compression dressing. Tourniquet was deflated. POSTOPERATIVE DETAILS: The patient tolerated the procedure well and left the OR with vital signs stable and vascular status at preoperative levels. The patient was transported to recovery per anesthesia in stable condition. TRANSINT:[id number] Voice Confirmation ID: [id number] DOCUMENT ID: [id number] OPERATIVE REPORT [id number] KARINA CHAVARRIA MCKAY DPM CC: [id number] DICTATION DATE: 07/16/19 1459 ACCOUNT MANAGER B2B: 07/17/19 0047 [facility] 07/16/19 [place] [id number] [place] [address]
[~2019-07-16 10:20] MED LIST changes: +ANORO ELLIPTA1 EACH INH; +CELEXA20 MG PO
[2019-07-16] MEDS ORDERED: BAYER CHEWABLE81 MG PO (11:15)
[2019-07-16 11:16] VITALS: BP 148/63; Ht 175.3 cm; Wt 78.0 kg
--- NOTE | 2019-07-16 15:13 | NUR ---
XR AT BEDSIDE
--- NOTE | 2019-07-16 17:37 | NUR ---
6880 ASSISTED WITH STANDING UP USING WALKER. UNABLE TO URINATE IN URINAL. IV REMOVED PRIOR TO GETTING UP
--- NOTE | 2019-07-16 17:38 | NUR ---
1730 WENT TO [facility] TO GET RX FILLED
--- NOTE | 2019-07-16 19:26 | NUR ---
1900 PT ASSISTED ON BEDSIDE COMMODE AND VOIDED APPROX. 100ML 1920 UP WITH WALKER AND STANDBY ASSIST. TO W/C INSTRUCTIONS GIVEN AND RX FILLED.
== END 2019-07-16 19:20 | disposition home or self-care (01) ==
LOC: D.OPS 10:20 → D.PAN 12:15 → D.OPS 16:45 → D.PAN 16:45 → D.OPS 19:20
PROVIDERS: Anesthesiology; ATTEND Podiatrist
DX: S82.841A Displaced bimalleolar fracture of right lower leg, initial encounter for closed fracture (principal); X58.XXXA Exposure to other specified factors, initial encounter

== ENCOUNTER → 2020-04-19 09:21 | Outpatient (CLI) | payer MEDICARE, BC ==
[2019-07-16 11:16] VITALS: BMI 25.4
== END | disposition home or self-care (01) ==
LOC: D.HCCECHO 09:21
PROVIDERS: ATTEND Internal Medicine Cardiovascular Disease
DX: I25.10 Atherosclerotic heart disease of native coronary artery without angina pectoris (principal)

== ENCOUNTER → 2020-11-17 11:46 | Outpatient (CLI) | payer MEDICARE, BC ==
[2019-07-16 11:16] VITALS: BMI 25.4
== END | disposition home or self-care (01) ==
LOC: D.LAB 11:46
PROVIDERS: ATTEND Internal Medicine Pulmonary Disease
DX: Z11.52 Encounter for screening for COVID-19 (principal)

== ENCOUNTER → 2020-11-22 11:30 | Outpatient (CLI) | payer MEDICARE, BC ==
[2019-07-16 11:16] VITALS: BMI 25.4
== END | disposition home or self-care (01) ==
LOC: D.RT 10-06 14:00 → D.RAD 10-06 15:00 → D.RT 10-08 13:00 → D.RAD 10-08 13:45 → D.RT 11:30
PROVIDERS: ATTEND Internal Medicine Pulmonary Disease
DX: J44.9 Chronic obstructive pulmonary disease, unspecified (principal); Z11.52 Encounter for screening for COVID-19